=== PATIENT | female | born 1995 | race Caucasian/White ===

== ENCOUNTER → 2018-02-22 | Outpatient (REF) | payer BC ==
[2018-02-22 21:09] LABS: CHLAMYDIA DNA AMPLIFICATION NEGATIVE (NEGATIVE); GC DNA AMPLIFICATION NEGATIVE (NEGATIVE)
== END ==
LOC: M SFHCWAGY 11:47
DX: N93.0 Postcoital and contact bleeding (principal); Z12.4 Encounter for screening for malignant neoplasm of cervix

== ENCOUNTER → 2018-03-02 | Outpatient (CLI) | payer BC | LOC: M WHC 13:07 | DX: N93.0 Postcoital and contact bleeding (principal); N94.10 Unspecified dyspareunia; R93.8 Abnormal findings on diagnostic imaging of other specified body structures | CPT/HCPCS: 76830 ==

== ENCOUNTER 2018-05-12 06:58 | Day surgery (SDC) | payer BC ==
[2018-05-12] MEDS: SCOPOLAMINE 1MG TRANSDERMAL PATCH TOP (07:15)
[2018-05-12] MEDS ORDERED: SCOPOLAMINE 1MG TRANSDERMAL PATCH As Ordered (07:26)
[2018-05-12] MEDS: LR 1,000 ML IV (07:35)
[2018-05-12 07:39] LABS: HEMATOCRIT 39.6 % (36.0-47.0); HEMOGLOBIN 13.3 g/dl (12.0-15.5); MEAN CORPUSCULAR HEMOGLOBIN 30.6 pg (27.0-33.0); MEAN CORPUSCULAR HGB CONC 33.6 g/dl (32.0-36.5); PLATELET COUNT, AUTOMATED 330 10^3/uL (150-450); RED BLOOD COUNT 4.35 10^6/uL (4.00-5.40); RED CELL DISTRIBUTION WIDTH 12.3 % (11.5-14.5); WHITE BLOOD COUNT 6.8 10^3/uL (4.0-10.0)
[2018-05-12 07:41] LABS: CONTROL LINE HCG INT CTR LINE PRESENT; HCG, SERUM QUALITATIVE NEGATIVE (NEGATIVE)
[2018-05-12] MEDS ORDERED: dexameTHASONE 4 MG/ML 1ML VIAL (J1100) As Ordered ×2 (08:02)
[2018-05-12] MEDS ORDERED: PROPOFOL 200 MG/20 ML VIAL As Ordered ×2 (08:02→08:19)
[2018-05-12] MEDS ORDERED: KETOROLAC 60 MG/2 ML VIAL (J1885) As Ordered (08:02)
[2018-05-12] MEDS ORDERED: LIDOCAINE 2% INJ 100 MG/5 ML SDV (FOR ANES.) As Ordered (08:02)
[2018-05-12] MEDS ORDERED: ONDANSETRON 4MG/2ML VIAL (J2405) As Ordered (08:02)
[2018-05-12] MEDS ORDERED: MIDAZOLAM INJ 2 MG/2 ML VIAL (J2250) As Ordered (08:02)
[2018-05-12] MEDS ORDERED: fentaNYL 100 MCG/2 ML INJECTION (J3010) As Ordered (08:03)
[2018-05-12] MEDS: SILVER NITRATE APPLICATOR As Ordered (09:40)
[2018-05-12] MEDS ORDERED: fentaNYL 100 MCG/2 ML INJECTION (J3010) IV (10:15)
[2018-05-12] MEDS ORDERED: PERCOCET 5MG/325MG TAB PO (10:15)
[2018-05-12] MEDS ORDERED: HYDROMORPHONE HCL 0.5 MG/ 0.5 ML SYRINGE (J1170 PER 1) IV (10:15)
[2018-05-12] MEDS ORDERED: ONDANSETRON 4MG/2ML VIAL (J2405) IV (10:15)
[2018-05-12] MEDS ORDERED: LR 1,000 ML IV ×2 (10:15)
== END 2018-05-12 11:35 | disposition home or self-care (01) ==
LOC: M SDC 06:58
DX: N84.0 Polyp of corpus uteri (principal); N97.9 Female infertility, unspecified; K21.9 Gastro-esophageal reflux disease without esophagitis; K58.8 Other irritable bowel syndrome; Z79.899 Other long term (current) drug therapy; Z91.040 Latex allergy status
CPT/HCPCS: 58558

== ENCOUNTER → 2018-05-25 | Outpatient (CLI) | payer BC ==
[~2018-05-25] MED LIST: GABA-1171 PO; PANT40TA3 PO; PSEU30TA21 PO; SENE8.6T3 PO; TYLE500T78 PO
[2018-05-25 18:06] LABS: FREE T4 0.9 NG/DL (0.76-1.46); THYROID STIMULATING HORMONE 0.653 uIU/ML (0.358-3.740)
[2018-05-25 18:13] LABS: HEMOGLOBIN A1c 5.4 %
== END ==
LOC: M SMT 13:59
PROVIDERS: ATTEND Obstetrics & Gynecology
DX: N93.9 Abnormal uterine and vaginal bleeding, unspecified (principal)

== ENCOUNTER → 2019-11-24 | Outpatient (REF) | payer BC ==
[2019-11-24 17:15] LABS: HEMATOCRIT 37.6 % (36.0-47.0); HEMOGLOBIN 12.1 g/dl (12.0-15.5); MEAN CORPUSCULAR HEMOGLOBIN 29.4 pg (27.0-33.0); MEAN CORPUSCULAR HGB CONC 32.2 g/dl (32.0-36.5); MEAN CORPUSCULAR VOLUME 91.3 fl (80.0-96.0); PLATELET COUNT, AUTOMATED 395 10^3/uL (150-450); RED BLOOD COUNT 4.12 10^6/uL (4.00-5.40); WHITE BLOOD COUNT 6.2 10^3/uL (4.0-10.0)
[2019-11-24 17:34] LABS: ALBUMIN 3.7 GM/DL (3.2-5.2); ALT/SGPT 22 U/L (12-78); BILIRUBIN,TOTAL 0.6 MG/DL (0.2-1.0); BLOOD UREA NITROGEN 7 MG/DL (7-18); CALCIUM LEVEL 9.1 MG/DL (8.5-10.1); CARBON DIOXIDE LEVEL 28 MEQ/L (21-32); CHLORIDE LEVEL 106 MEQ/L (98-107); GLOMERULAR FILTRATION RATE > 60.0 (>60); GLUCOSE, FASTING 82 MG/DL (70-100); HCG, SERUM QUANTITATIVE < 1.0 MIU/ML; POTASSIUM SERUM 4.4 MEQ/L (3.5-5.1); SODIUM LEVEL 137 MEQ/L (136-145); TOTAL PROTEIN 6.9 GM/DL (6.4-8.2)
== END ==
LOC: M LABDRAWC 16:01
PROVIDERS: ATTEND Obstetrics & Gynecology Reproductive Endocrinology
DX: Z01.812 Encounter for preprocedural laboratory examination (principal)

== ENCOUNTER → 2019-11-27 | Outpatient (REF) | payer BC | LOC: M LAB REF 11:58 | PROVIDERS: ATTEND Physician Assistant | DX: Z20.828 Contact with and (suspected) exposure to other viral communicable diseases (principal) ==

== ENCOUNTER → 2020-02-21 | Outpatient (CLI) | payer BC ==
[~2020-02-21] MED LIST changes: +PANT40TA29 PO; -PANT40TA3 PO
[2020-02-22 09:07] LABS: PROGESTERONE 17.4 NG/ML
[2020-02-22 09:08] LABS: ESTRADIOL 351.3 PG/ML
== END ==
LOC: M WUC 12:20
PROVIDERS: ATTEND Obstetrics & Gynecology Reproductive Endocrinology
DX: O09.00 Supervision of pregnancy with history of infertility, unspecified trimester (principal); Z3A.00 Weeks of gestation of pregnancy not specified

== ENCOUNTER 2021-06-04 15:32 | Emergency (ER) | payer BC ==
[~2021-06-04] VITALS: Ht 165.1 cm; Wt 61.4 kg
[2021-06-04] MEDS ORDERED: MULTTAB20 PO (15:52)
[2021-06-04] MEDS ORDERED: ZOLO50TA PO (15:52)
[2021-06-04 16:43] LABS: BASO % 0.2 % (0.0-1.0); EOS % 0.1 % (0.0-3.0); HEMATOCRIT 43.2 % (36.0-47.0); HEMOGLOBIN 14.2 g/dl (12.0-15.5); LYMPH # 1.8 10^3/uL (1.5-5.0); LYMPH % 13.6 % (24.0-44.0); MEAN CORPUSCULAR HEMOGLOBIN 29.5 pg (27.0-33.0); MEAN CORPUSCULAR HGB CONC 32.9 g/dl (32.0-36.5); MEAN CORPUSCULAR VOLUME 89.8 fl (80.0-96.0); MONO # 0.6 10^3/uL (0.0-0.8); MONO % 4.2 % (2.0-8.0); NEUTROPHILS % 81.5 % (36.0-66.0); PLATELET COUNT, AUTOMATED 343 10^3/uL (150-450); RED BLOOD COUNT 4.81 10^6/uL (4.00-5.40); WHITE BLOOD COUNT 13.5 10^3/uL (4.0-10.0)
[2021-06-04 17:02] LABS: BLOOD UREA NITROGEN 12 MG/DL (7-18); CALCIUM LEVEL 9.6 MG/DL (8.5-10.1); CARBON DIOXIDE LEVEL 28 MEQ/L (21-32); CHLORIDE LEVEL 105 MEQ/L (98-107); CREATININE FOR GFR 0.58 MG/DL (0.55-1.30); GLOMERULAR FILTRATION RATE > 60.0 (>60); GLUCOSE, FASTING 88 MG/DL (70-100); MAGNESIUM LEVEL 2.2 MG/DL (1.8-2.4); SODIUM LEVEL 138 MEQ/L (136-145)
--- NOTE | 2021-06-04 17:06 | REP ---
INDICATION: bilateral pelvic tenderness, nausea, and diarrhea COMPARISON: 03/02/2018 TECHNIQUE: Transabdominal pelvic ultrasound followed by transvaginal examination for better evaluation of the endometrium and adnexa with color Doppler evaluation of the ovaries. FINDINGS: Bladder is empty. Normal anteverted uterus measures 7.7 x 4.0 x 5.2 cm. The endometrial complex measures 13 mm thickness. No discrete uterine or endometrial abnormalities are appreciated. Bilateral ovaries are normal in appearance and vascularity without evidence for torsion. Right ovary measures 3.3 x 1.7 x 1.9 cm; R I = 0.52. Left ovary measures 3.2 x 2.9 x 2.8 cm with 2.1 cm dominant follicle; R I = 0.38. IMPRESSION: Normal pelvic ultrasound. <Electronically signed by Bert Hartmann > 06/04/21 [id number]
[2021-06-04 17:34] LABS: HCG, SERUM QUALITATIVE NEGATIVE (NEGATIVE)
--- NOTE | 2021-06-04 19:01 | REPVR ---
PROCEDURE INFORMATION: Exam: CT Abdomen And Pelvis Without Contrast Exam date and time: 06/04/2021 6:07 PM Age: 25 years old Clinical indication: Other: Pelvic pain, leukocytosis, diarrhea TECHNIQUE: Imaging protocol: Computed tomography of the abdomen and pelvis without contrast. Radiation optimization: All CT scans at this facility use at least one of these dose optimization techniques: automated exposure control; mA and/or kV adjustment per patient size (includes targeted exams where dose is matched to clinical indication); or iterative reconstruction. COMPARISON: US PELVIC NON-OB COMPLETE 06/04/2021 4:31 PM FINDINGS: Limitations: Absence of intravenous contrast limits evaluation of vascular and visceral structures. Lungs: The lung bases are unremarkable. Liver: There are no focal liver lesions. Gallbladder and bile ducts: The gallbladder is unremarkable. Pancreas: Pancreas is only partially visualized due to adjacent bowel. Spleen: The spleen is unremarkable. Adrenal glands: Adrenal glands are poorly visualized. Kidneys and ureters: One punctate calcification is seen in the right kidney. No hydronephrosis. Stomach and bowel: There is no evidence of intestinal obstruction. Appendix: There is radiodense material in the appendix which measures approximately 9.6 mm in width. No obvious periappendiceal inflammation. Series 202, image 37. Intraperitoneal space: No free fluid in the cul-de-sac. Vasculature: The aorta is unremarkable. Lymph nodes: There is subcentimeter mesenteric lymph nodes. Urinary bladder: The bladder is unremarkable. Reproductive: Uterus and adnexae are not well assessed- better seen on ultrasound from earlier in the day. Bones/joints: There are bilateral L5 pars defects with grade 1 anterior spondylolisthesis which may affect the L5 nerve roots. Soft tissues: There is a fat-containing umbilical hernia. IMPRESSION: No evidence of bowel or urinary tract obstruction. The appendix is mildly enlarged measuring 9.2 mm in width. It is filled with radiodense material. No obvious periappendiceal inflammation. Electronically signed by: Elizabeth Ma On 06/04/2021 19:01:16 PM
[2021-06-04] MEDS ORDERED: PIPERACILLIN/TAZOBACTAM SOD 4.5 GM in D5W MINI-BAG PLUS 50 ML IV ONE (19:05)
[2021-06-04 21:25] VITALS: BP 121/73
--- NOTE | 2021-06-04 22:39 | CR ---
CONSULTATION DATE: 06/04/2021 REQUESTING PHYSICIAN: Dr. Bert Fraser, Emergency Department CONSULTING PHYSICIAN: Dr. Riccardo Turcios REASON FOR CONSULTATION: Abdominal pain with intraluminal density in the appendix on CT. HISTORY OF PRESENT ILLNESS: The patient is a 25-year-old generally healthy woman who reported that she noted the sudden onset of some sharp abdominal pain at approximately 1:30 in the afternoon on the 04 of June. She reported that she had slept well overnight and had no discomfort on awakening. She had a sandwich in the morning for breakfast. 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 At approximately 1:30 she indicates that she noted a sharp, severe pain in the lower abdomen. This apparently extended across the lower abdomen. She had a feeling of pressure and a sensation that she needed to have a bowel movement. She did go to the bathroom and had what she described as a hard bowel movement. She had persistence of the discomfort though it waxed and waned for perhaps an hour or two. She had a second hard bowel movement. She reported some severe nausea following this. She indicates that she felt dizzy and had cold sweats and felt as if her hands went numb briefly. She presented to an urgent care center at 2:00 or 2:30 in the afternoon. She was seen briefly but then referred to the Emergency Department as they thought she would require more evaluation than they could offer. The patient did at some point in the process of her discomfort try to force another bowel movement and had a tiny amount of diarrhea with a small amount of blood. She reports that her discomfort has now become more of a mild ache but also some discomfort across the lower back. The patient underwent evaluation in the Emergency Department with laboratory studies and then had a pelvic ultrasound followed by a CT scan of the abdomen and pelvis. Her CT scan showed some increased density in the lumen of the appendix which was perhaps very slightly above normal diameter, but there was no evidence of periappendiceal inflammation. I was asked to evaluate the patient. ALLERGIES: 1. Reported to tape. 2. Blue dye. 3. Latex. MEDICATIONS: 1. vitamins. 2. Zoloft 50 mg daily. MEDICAL HISTORY: The patient's past medical history is significant for delivery of her first child approximately 8 months ago. She is breast feeding. She reports that she started having periods again about 4 months after her delivery and her last menses was the through the 19 of May. She does report that she has had constipation previously on occasion. She does have a history of depression previously as well. SURGICAL HISTORY: The patient had undergone laparoscopy for treatment of endometriosis approximately one and a half to two years ago, and about a year before that, had undergone excision of a cervical polyp. FAMILY HISTORY: The patient's family history is noncontributory. REVIEW OF SYSTEMS: The patient's review of systems shows no history of chest pain or palpitations. She denies any cough, wheezing, shortness of breath, sputum production. She denies any history of COVID infection and has not been immunized for COVID. She denies any prior similar episodes of abdominal pain. She does have some mild gastroesophageal reflux at times. She denies any dysuria or hematuria and has no history of renal stones. She has no significant orthopedic issues. There is no history of DVT or pulmonary embolus. The patient has had a history of headaches in the past. SOCIAL HISTORY: The patient has one child. She does not smoke and denies excessive alcohol. 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 PHYSICAL EXAMINATION: GENERAL APPEARANCE: When I first went to see the patient she was pumping breast milk. She was alert, oriented and cooperative. I came back after she had finished, to discuss her situation further and perform the exam. VITAL SIGNS: She was afebrile in the Emergency Department. Blood pressure and pulse were within normal limits as recorded in the E.R. SKIN: Warm and dry. HEENT: Sclerae are anicteric. Again, she is alert and oriented. NECK: Supple. HEART: Regular rhythm of about 70. LUNGS: Clear to auscultation bilaterally. ABDOMEN: Flat. She has some striae and some lax skin of the lower abdominal wall. She has no evident scars. She has bowel sounds present in all four quadrants. There is no tenderness to percussion. The abdomen is soft throughout without any guarding. She reported some very minimal tenderness on deep palpation in the right lower quadrant, but more so low in the midline, in the suprapubic area. No mass was appreciated. EXTREMITIES: No peripheral edema and she has palpable radial and pedal pulses. LABORATORY STUDIES: A CBC with a differential showing a white count of 14,000, hemoglobin 14, hematocrit 43 and a platelet count of 343,000. Differential count showed 82% neutrophils, 14% lymphocytes and 4% monocytes. Chemistry profile was entirely normal. Lactic acid was 0.9. HCG was negative. Urinalysis was not suggestive of a urinary tract infection. IMAGING: A pelvic ultrasound was read by Radiology as showing a normal pelvic ultrasound. A CT scan of the abdomen and pelvis was then obtained. I reviewed the images of the CT scan personally. The radiologist reported some radiodense material in the appendix. The radiologist interpreted the appendix as being mildly enlarged at 9.2 mm in width but with no obvious periappendiceal inflammation. I would agree that there is no evidence of inflammation in the periappendiceal area. I see no free fluid. There were no other obvious abnormalities to account for her discomfort. IMPRESSION: The patient is a pleasant, generally healthy 25-year-old woman who noted the sudden onset of some lower abdominal pain approximately 7 hours before I examined her this evening. The pain was quite severe at first but did wax and wane. She did have several hard bowel movements. She had some associated symptoms with some nausea and a feeling of dizziness and cold sweats. Some of this may have represented a vagal type reaction. Currently her abdomen is flat and she has only minimal tenderness to very deep palpation in the lower abdomen. The CT scan showed some increased density in the lumen of the appendix of uncertain nature, but no evidence of appendiceal inflammation. I do not believe that this represents appendicitis. It may be that this represents significant constipation with the crampy pains associated with this. PLAN: I counseled the patient that I am satisfied that this does not represent appendicitis. I advised her that I would not recommend any surgical intervention. I believe she could be safely discharged home. She seems to be someone who would be capable of determining whether they are improving or getting worse. I would recommend either a light diet or a liquid diet at first, perhaps with mild analgesics such as [id number] medications as needed. Certainly if she has a worsening of her pain, then she could return to the Emergency Department for reevaluation. I discussed the patient with Dr. Fraser.
== END 2021-06-04 21:28 | disposition home or self-care (01) ==
LOC: M ED 15:32
DX: K59.00 Constipation, unspecified (principal); R11.2 Nausea with vomiting, unspecified; Z91.040 Latex allergy status; Z91.09 Other allergy status, other than to drugs and biological substances
CPT/HCPCS: 74176; 76830; 76856; 80048; 81001; 83605; 83735; 84703; 85025; 93976; 96365; 96366; 99284; J2543

== ENCOUNTER → 2021-06-06 | Outpatient (REF) | payer BC ==
[~2021-06-06] MED LIST changes: +MULTTAB20 PO; +ZOLO50TA PO
[2021-06-06 16:20] LABS: BASO % 0.2 % (0.0-1.0); EOS # 0.1 10^3/uL (0.0-0.5); EOS % 0.8 % (0.0-3.0); HEMOGLOBIN 12.6 g/dl (12.0-15.5); LYMPH # 2.2 10^3/uL (1.5-5.0); LYMPH % 34.7 % (24.0-44.0); MEAN CORPUSCULAR HEMOGLOBIN 30.1 pg (27.0-33.0); MEAN CORPUSCULAR HGB CONC 33.2 g/dl (32.0-36.5); MEAN CORPUSCULAR VOLUME 90.9 fl (80.0-96.0); MONO # 0.6 10^3/uL (0.0-0.8); MONO % 9.1 % (2.0-8.0); NEUTROPHILS # 3.4 10^3/uL (1.5-8.5); PLATELET COUNT, AUTOMATED 290 10^3/uL (150-450); RED BLOOD COUNT 4.18 10^6/uL (4.00-5.40); WHITE BLOOD COUNT 6.2 10^3/uL (4.0-10.0)
[2021-06-06 16:33] LABS: BLOOD UREA NITROGEN 11 MG/DL (7-18); CARBON DIOXIDE LEVEL 30 MEQ/L (21-32); CHLORIDE LEVEL 105 MEQ/L (98-107); CREATININE FOR GFR 0.55 MG/DL (0.55-1.30); GLOMERULAR FILTRATION RATE > 60.0 (>60); GLUCOSE, FASTING 89 MG/DL (70-100); POTASSIUM SERUM 3.7 MEQ/L (3.5-5.1); SODIUM LEVEL 139 MEQ/L (136-145)
== END ==
LOC: M SFHCCLAY 07:06
PROVIDERS: ATTEND Family Medicine
DX: R10.30 Lower abdominal pain, unspecified (principal)

== ENCOUNTER → 2021-11-22 | Outpatient (REF) | payer BC ==
[2021-11-22 16:34] LABS: BASO % 0.1 % (0.0-1.0); EOS % 0.5 % (0.0-3.0); HEMATOCRIT 39.8 % (36.0-47.0); HEMOGLOBIN 13.1 g/dl (12.0-15.5); LYMPH # 2.2 10^3/uL (1.5-5.0); LYMPH % 29.9 % (24.0-44.0); MEAN CORPUSCULAR HEMOGLOBIN 29.7 pg (27.0-33.0); MEAN CORPUSCULAR HGB CONC 32.9 g/dl (32.0-36.5); MEAN CORPUSCULAR VOLUME 90.2 fl (80.0-96.0); MONO # 0.6 10^3/uL (0.0-0.8); MONO % 8.1 % (2.0-8.0); NEUTROPHILS # 4.5 10^3/uL (1.5-8.5); NEUTROPHILS % 61.1 % (36.0-66.0); PLATELET COUNT, AUTOMATED 326 10^3/uL (150-450); RED BLOOD COUNT 4.41 10^6/uL (4.00-5.40); WHITE BLOOD COUNT 7.4 10^3/uL (4.0-10.0)
[2021-11-22 17:15] LABS: ALBUMIN 3.6 GM/DL (3.2-5.2); ALT/SGPT 16 U/L (12-78); BILIRUBIN,TOTAL 0.7 MG/DL (0.2-1.0); BLOOD UREA NITROGEN 5 MG/DL (7-18); CALCIUM LEVEL 9.9 MG/DL (8.5-10.1); CARBON DIOXIDE LEVEL 24 MEQ/L (21-32); CHLORIDE LEVEL 108 MEQ/L (98-107); CREATININE FOR GFR 0.56 MG/DL (0.55-1.30); GLOMERULAR FILTRATION RATE > 60.0 (>60); GLUCOSE, FASTING 81 MG/DL (70-100); HCG, SERUM QUANTITATIVE 1188 MIU/ML; POTASSIUM SERUM 4.4 MEQ/L (3.5-5.1); SODIUM LEVEL 139 MEQ/L (136-145); TOTAL PROTEIN 6.8 GM/DL (6.4-8.2)
== END ==
LOC: M SFHCCLAY 10:41
PROVIDERS: ATTEND Physician Assistant
DX: N91.2 Amenorrhea, unspecified (principal)

== ENCOUNTER → 2022-12-11 | Outpatient (REF) | payer BC ==
[2022-12-11 18:43] LABS: ALKALINE PHOSPHATASE 102 U/L (46-116); ALT/SGPT 23 U/L (7.0-40); AST/SGOT < 8 U/L (<34); BILIRUBIN,TOTAL 0.8 MG/DL (0.3-1.2); BLOOD UREA NITROGEN 7 MG/DL (9-23); CALCIUM LEVEL 9.2 MG/DL (8.5-10.1); CARBON DIOXIDE LEVEL 26 MMOL/L (20-31); CHLORIDE LEVEL 107 MMOL/L (98-107); CREATININE FOR GFR 0.55 MG/DL (0.55-1.30); GLOMERULAR FILTRATION RATE > 60.0 (>60); GLUCOSE, FASTING 84 MG/DL (60-100); POTASSIUM SERUM 4.1 MMOL/L (3.5-5.1); SODIUM LEVEL 141 MMOL/L (136-145); TOTAL PROTEIN 6.5 G/DL (5.7-8.2)
[2022-12-11 18:46] LABS: C REACTIVE PROTEIN QUANTITATIV < 0.40 MG/DL (<1.0)
[2022-12-11 18:47] LABS: FREE T4 1.05 NG/DL (0.89-1.76); RHEUMATOID FACTOR QUANT < 3.5 IU/ML (<14); THYROID STIMULATING HORMONE 0.771 uIU/ML (0.55-4.78)
[2022-12-15 21:07] LABS: ANA (HEP2) Negative (.); CYCLIC CITRULLINATED PEPTIDE 6 units (0-19); SSA SJOGRENS A <0.2 AI (0.0-0.9); SSB SJOGRENS B <0.2 AI (0.0-0.9)
== END ==
LOC: M SFHCCLAY 14:24
PROVIDERS: ATTEND Nurse Practitioner Family
DX: M25.50 Pain in unspecified joint (principal); R14.0 Abdominal distension (gaseous)

== ENCOUNTER → 2023-01-19 | Outpatient (REF) | payer BC ==
[2023-01-19 13:04] LABS: ALBUMIN 3.9 G/DL (3.2-5.2); ALKALINE PHOSPHATASE 116 U/L (46-116); ALT/SGPT 15 U/L (7.0-40); AST/SGOT < 8 U/L (<34); BILIRUBIN,TOTAL 0.4 MG/DL (0.3-1.2); BLOOD UREA NITROGEN 14 MG/DL (9-23); CALCIUM LEVEL 9.3 MG/DL (8.5-10.1); CARBON DIOXIDE LEVEL 29 MMOL/L (20-31); CHLORIDE LEVEL 105 MMOL/L (98-107); CREATININE FOR GFR 0.58 MG/DL (0.55-1.30); GLOMERULAR FILTRATION RATE > 60.0 (>60); GLUCOSE, FASTING 96 MG/DL (60-100); POTASSIUM SERUM 4.3 MMOL/L (3.5-5.1); SODIUM LEVEL 141 MMOL/L (136-145); TOTAL PROTEIN 7.1 G/DL (5.7-8.2)
== END ==
LOC: M SFHCCLAY 09:09
PROVIDERS: ATTEND Nurse Practitioner Family
DX: M25.50 Pain in unspecified joint (principal)

== ENCOUNTER → 2023-08-27 | Outpatient (CLI) | payer BC | LOC: M CLY 14:15 | PROVIDERS: ATTEND Nurse Practitioner Family | DX: M54.6 Pain in thoracic spine (principal) ==

== ENCOUNTER → 2023-12-31 | Outpatient (CLI) | payer BC | LOC: M RAD 15:41 | PROVIDERS: ATTEND Nurse Practitioner Family | DX: M54.6 Pain in thoracic spine (principal); R09.A0 Foreign body sensation, unspecified ==